=== PATIENT | female | born 1995 | race Two or more races ===

== ENCOUNTER 2023-05-17 08:55 | Emergency (ER) | payer OTHER ==
[~2023-05-17] VITALS: Ht 144.8 cm; Wt 40.4 kg
[~2023-05-17 08:55] MED LIST: ONDANSETRON ODT8 MG PO; PEPCID AC20 MG PO
[2023-05-17 09:41] LABS: HEMATOCRIT 33.8 % (36.0-45.00); HEMOGLOBIN 11.5 g/dL (12.0-15.00); MEAN CELL VOLUME 79.2 fL (80.00-100.00); MEAN CORPUSCULAR HEMOGLOBIN 26.9 pg (27.00-32.0); MEAN CORPUSCULAR HGB CONC 33.9 g/dl (32.0-36.0); PLATELET COUNT 259 K/uL (150-450); RED BLOOD COUNT 4.27 M/uL (4.00-6.00); RED CELL DISTRIBUTION WIDTH 14.9 % (11.5-14.5)
[2023-05-17 10:06] LABS: PH,URINE 6.5 (5.0-8.0); URINE APPEARANCE Clear; URINE BILIRRUBIN Negative (NEGATIVE); URINE BLOOD Negative; URINE COLOR Yellow; URINE GLUCOSE Negative (NEGATIVE); URINE LEUKOCYTE Small; URINE NITRATE Negative; URINE PROTEIN 30 (NEGATIVE)
[2023-05-17 10:09] LABS: URINE WBC 21.9 uL (0.0-23.2)
== END 2023-05-17 12:20 | disposition home or self-care (01) ==
LOC: ER 08:56
PROVIDERS: Emergency Medicine
DX: O26.892 Other specified pregnancy related conditions, second trimester (principal); Z3A.17 17 weeks gestation of pregnancy; K59.00 Constipation, unspecified; Z88.8 Allergy status to other drugs, medicaments and biological substances

== ENCOUNTER 2023-10-10 09:25 | Inpatient (IN) | payer OTHER ==
[~2023-10-10] VITALS: Ht 144.8 cm; Wt 50.3 kg
[2023-10-10] MEDS ORDERED: OXYTOCIN 20 UNITS/500ML RL PIGGYBAG IV SCH (09:45)
[2023-10-10] MEDS ORDERED: AMPICILLIN SODIUM 2,000 MG VIAL ONE (10:04)
[2023-10-10] MEDS ORDERED: OXYTOCIN 10 UNITS/ML VIAL ONE ×2 (10:16→14:21)
[2023-10-10 10:45] LABS: PH,URINE 6.5 (5.0-8.0); URINE APPEARANCE Clear; URINE BILIRRUBIN Negative (NEGATIVE); URINE BLOOD Negative; URINE COLOR Yellow; URINE GLUCOSE Negative (NEGATIVE); URINE LEUKOCYTE Moderate; URINE NITRATE Negative; URINE PROTEIN Negative (NEGATIVE); URINE UROBILINOGEN 0.2 E.U./dl
[2023-10-10 10:46] LABS: HEMOGLOBIN 11.3 g/dL (12.0-15.00); MEAN CELL VOLUME 79.5 fL (80.00-100.00); MEAN CORPUSCULAR HEMOGLOBIN 26.5 pg (27.00-32.0); MEAN CORPUSCULAR HGB CONC 33.3 g/dl (32.0-36.0); PLATELET COUNT 187 K/uL (150-450); RED BLOOD COUNT 4.27 M/uL (4.00-6.00); RED CELL DISTRIBUTION WIDTH 15.6 % (11.5-14.5)
[2023-10-10 10:49] LABS: URINE BACTERIA 2047.4 uL (0.0-1933); URINE EPITHELIAL CELLS 58.9 uL (0.0-38.8); URINE RBC 2.4 uL (0.0-20.8); URINE WBC 81.1 uL (0.0-23.2)
[2023-10-10 11:17] LABS: INR 0.95; PARTIAL THROMBOPLASTIN TIME 30.2 SECONDS (22.0-34.0)
[2023-10-10] MEDS ORDERED: AMPICILLIN SODIUM 2,000 MG VIAL IV ONE (11:30)
[2023-10-10] MEDS ORDERED: AMPICILLIN SODIUM 1,000 MG VIAL IV SCH (13:00)
[2023-10-10] MEDS ORDERED: CHLORHEXIDINE GLUCONATE 120 ML BOTTLE TOP ONE (14:22)
[2023-10-10] MEDS ORDERED: ERYTHROMYCIN BASE 1 GM TUBE OP ONE (14:22)
[2023-10-10] MEDS ORDERED: OXYTOCIN 20 UNITS/1000ML RL PIGGYBAG IV ONE (14:52)
[2023-10-10 16:36] LABS: ABG PH 7.176 (7.35-7.45); ABG PO2 16.1 mmHg (80-100)
[2023-10-10 16:37] LABS: BASE EXCESS -5.3 mmol/l; BICARBONATE 24.6 mmol/l (23-25); SaO2 13.6 %; Tco2 26.7 mmol/l; o2 21 %
[2023-10-10] MEDS ORDERED: CHLORHEXIDINE GLUCONATE 120 ML BOTTLE TOP SCH (18:30)
[2023-10-10] MEDS ORDERED: ACETAMINOPHEN 500 MG GEL..CAP PO PRN (18:30)
[2023-10-10] MEDS ORDERED: LIDOCAINE HCL 1% 200MG/20ML VIAL IJ SCH (18:30)
[2023-10-10] MEDS ORDERED: OXYTOCIN 1,000 ML IV SCH (18:30)
[2023-10-10] MEDS ORDERED: ERYTHROMYCIN BASE 1 GM TUBE OP SCH (18:30)
[2023-10-10 19:27] LABS: HEMATOCRIT 35.2 % (36.0-45.00); HEMOGLOBIN 11.5 g/dL (12.0-15.00); MEAN CORPUSCULAR HEMOGLOBIN 25.6 pg (27.00-32.0); MEAN CORPUSCULAR HGB CONC 32.8 g/dl (32.0-36.0); PLATELET COUNT 191 K/uL (150-450); RED BLOOD COUNT 4.52 M/uL (4.00-6.00); RED CELL DISTRIBUTION WIDTH 15.8 % (11.5-14.5)
[2023-10-11] MEDS ORDERED: PNV,CALCIUM 72/IRON/FOLIC ACID 1 TAB TABLET PO SCH (09:00)
[2023-10-12] MEDS ORDERED: FF) RHO(D) IMMUNE GLOBULIN (POM) IM ONE (08:45)
[2023-10-12] MEDS ORDERED: HYPERRHO S-1500 UNIT IM (08:46)
== END 2023-10-12 13:19 | disposition home or self-care (01) | DRG 807 ==
LOC: LDR 09:25 → OB/GYN 16:31
PROVIDERS: ADMIT Obstetrics & Gynecology; ATTEND Obstetrics & Gynecology
PROC: 10E0XZZ Delivery of Products of Conception, External Approach (ICD-10-PCS; principal; 2023-10-10)
PROC: 4A1HXCZ Monitoring of Products of Conception, Cardiac Rate, External Approach (ICD-10-PCS; 2023-10-10)
DX: O36.5930 Maternal care for other known or suspected poor fetal growth, third trimester, not applicable or unspecified (principal); O99.824 Streptococcus B carrier state complicating childbirth; Z37.0 Single live birth; Z3A.38 38 weeks gestation of pregnancy; Z20.822 Contact with and (suspected) exposure to COVID-19